=== PATIENT | female | born 1990 | race Caucasian/White ===

== ENCOUNTER 2016-09-03 20:13 | Inpatient (IN) | payer BC ==
[2016-09-03] MEDS ORDERED: OXYTOCIN 10 UNIT/ML 1 ML VIAL IM PRN (20:35)
[2016-09-03] MEDS ORDERED: TERBUTALINE 1 MG/ML VIAL SQ PRN (20:35)
[2016-09-03] MEDS ORDERED: LIDOCAINE 1% (PF) 10 MG/ML (30 ML SDV) SQ PRN (20:35)
[2016-09-03] MEDS ORDERED: CARBOPROST TROMETHAMINE 250 MCG/ML 1 ML AMP IM PRN (20:35)
[2016-09-03] MEDS ORDERED: METHYLERGONOVINE 0.2 MG/ML 1 ML AMP IM PRN (20:35)
[2016-09-03] MEDS ORDERED: BUTORPHANOL 1 MG/ML 1 ML VIAL IV PRN (20:36)
[2016-09-03] MEDS: LACTATED RINGERS 1,000 ML IV SCH (21:03)
[2016-09-03 21:14] LABS: Basophils % (A) 0 %; CH 29.6; CHCM 33.9; Eosinophils # (A) 0.1 k/uL (0-0.7); Eosinophils % (A) 1 %; HCT 40.2 % (34.0-46.0); HDW 2.78; HGB 13.5 gm/dL (11.4-16.0); Luc # (Auto) 0.37; Luc % (Auto) 3; Lymphocytes # (A) 1.7 k/uL (1.0-4.8); Lymphocytes % (A) 14 %; MCH 29.3 pg (25.0-35.0); MCHC 33.5 g/dL (31.0-37.0); MCV 87.6 fL (80.0-100.0); Mean Platelet Volume 8.5; Monocytes # (A) 0.6 k/uL (0-1.0); Monocytes % (A) 5 %; Neutrophils # (A) 9.7 k/uL (1.3-7.7); Neutrophils % (A) 78 %; RBC 4.59 m/uL (3.80-5.40); RDW 15.5 % (11.5-15.5); WBC 12.5 k/uL (3.8-10.6); WBC (Perox) 13.03
--- NOTE | 2016-09-03 21:43 | P.HPOB ---
History of Present Illness H&P Date: 09/03/16 Chief Complaint: 40-4/7 weeks, spontaneous rupture of membranes, early labor The patient is a 26-year-old 1 para 0 admitted at 40-4/7 weeks as established by an ultrasound early in the . She is admitted with documented spontaneous rupture of membranes of clear fluid. Her has been uncomplicated and group B strep status is negative. Obstetrical history: 1 para 0 with current statistics listed in history present illness. EDC of 08/30/2016 was established by early ultrasound. Laboratory workup demonstrates a blood type of A+ with a negative antibody screen. Rubella status is immune. The remainder of the laboratory workup was within normal limits. One hour Glucola was normal and group B strep status is negative. Gynecologic history: Unremarkable with no history of any infections to include STDs. Review of Systems Review of systems is confined to history of present illness. Past Medical History History of Any Multi-Drug Resistant Organisms: MRSA Date of last positivie culture/infection: 12/16/2013 MDRO Source:: Buttock Medications and Allergies Home Medications Medication Instructions Recorded Confirmed Type No Known Home Medications [No 09/03/16 09/03/16 History Known Home Medications] Allergies Allergy/AdvReac Type Severity Reaction Status Date / Time No Known Allergies Allergy Verified 09/03/16 20:34 Exam - Vital Signs Vital signs: Intake and Output 09/03/16 09/03/16 09/03/16 06:59 14:59 22:59 Other: Weight 86.183 kg Patient Weight 09/04/16 06:59 Weight 86.183 kg In general, this is a well-developed, well-nourished white female in no acute distress though she is in early labor. Her heart has a regular rhythm and rate without murmur. Her lungs are clear to auscultation bilaterally in all mary. Her abdomen is gravid, nondistended, has normal active bowel sounds, is soft, nontender, and without any palpable masses aside from uterine fundus. Her extremities are without any cyanosis, clubbing, or significant edema and are nontender to palpation bilaterally. Digital cervical examination performed by the nursing staff demonstrates her cervix to be 4 cm dilated, approximate 70% effaced, the vertex in presentation at -2 station. Spontaneous rupture of membranes is confirmed. Results Result Diagrams: 09/03/16 20:55 Abnormal Lab Results - Last 24 Hours (Table) 09/03/16 Range/Units 20:55 WBC 12.5 H (3.8-10.6) k/uL Neutrophils # 9.7 H (1.3-7.7) k/uL Assessment and Plan (1) Spontaneous rupture of amniotic membranes Status: Acute (2) Active labor at term Status: Acute Plan: The patient is admitted for active management of labor. She is lev on her own at this time in a regular pattern. Should she made no progress over the next several hours, Pitocin augmentation will be added. She will have close maternal and surveillance and expectant management will be practiced. She is a good candidate for either IV or epidural analgesia, whichever she may choose.
[2016-09-03 23:28] VITALS: BMI 33.6
[2016-09-04] MEDS: LACTATED RINGERS 1,000 ML IV SCH (00:28)
[2016-09-04] MEDS ORDERED: OXYTOCIN 20 UNITS/1000 ML NS 1,000 ML IV SCH (07:00)
[2016-09-04] MEDS ORDERED: BENZOCAINE/MENTHOL SPRAY 1 GM/SPRAY AEROSOL TOPICAL PRN (08:57)
[2016-09-04] MEDS ORDERED: WITCH HAZEL 1 EACH MED..PAD TOPICAL PRN (08:57)
[2016-09-04] MEDS ORDERED: diphenhydrAMINE 50 MG/ML 1 ML VIAL IVP PRN ×2 (08:57)
[2016-09-04] MEDS ORDERED: ACETAMINOPHEN TAB 325 MG TAB PO PRN (08:57)
[2016-09-04] MEDS ORDERED: diphenhydrAMINE ELIXIR 25 MG/10 ML CUP PO PRN (08:57)
[2016-09-04] MEDS ORDERED: Acetaminophen-Codeine 300-30mg TAB PO PRN (08:57)
[2016-09-04] MEDS ORDERED: SIMETHICONE 80 MG CHEWABLE PO PRN (08:57)
[2016-09-04] MEDS ORDERED: diphenhydrAMINE 50 MG CAP PO PRN (08:57)
[2016-09-04] MEDS ORDERED: ZOLPIDEM 5 MG TAB PO PRN (08:57)
[2016-09-04] MEDS ORDERED: IBUPROFEN 600 MG TAB PO PRN (08:57)
[2016-09-04] MEDS ORDERED: diphenhydrAMINE 25 MG CAP PO PRN (08:57)
[2016-09-04] MEDS ORDERED: HYDROCORTISONE 2.5% RECTAL CREAM 30 GM TUBE RECTAL PRN (08:57)
[2016-09-04] MEDS ORDERED: LANOLIN CREAM 5 GM TUBE TOPICAL PRN (08:57)
--- NOTE | 2016-09-04 08:57 | P.PROBDLV ---
Vaginal Delivery Note - . Vaginal Delivery Note: This is a 26-year-old white female 1 para 0 EDC 11/30/2016 at 40-5/7 weeks' gestation. Patient was initially scheduled for induction, but presented in active spontaneous labor. Spontaneous amniorrhexis revealed clear fluid. Group B strep cultures negative, blood type A+, rubella status immune. Please see dictated history and physical for details. Oxytocin augmentation was started. Epidural was attempted per the anesthesia staff, but was unsuccessful. Patient progressed well through the first stage of labor and was judged to be completely dilated at 0635 hours. She began the second stage of labor at that time. Successfully with slow steady progress. Heart tones were reassuring throughout first and second stages. Ultimately the perineal body was draped. 's head delivered occiput anterior and he restituted accordingly. There was no nuchal cord. The left or anterior shoulder was gently delivered from underneath the pubic symphysis at which time the oropharynx, nasopharynx and external nares were bulb suctioned on the perineal body. Patient was officially delivered of a liveborn male infant at 0837 hours. Umbilical cord was doubly clamped and ligated, he was handed to waiting nurses for evaluation where scores of 9 and 9 at one and 5 minutes respectively were given. Perineal body was redraped. Inspection of the cervix, vagina, perineum and periurethral areas revealed a small second-degree laceration in the midline. This was injected with lidocaine, and repaired in the usual fashion using 3-0 Vicryl suture for excellent reapproximation and strength. Hemostasis was very good. Infant weight 8 lbs. 1 oz. or 3655 g. All sponge needle and enhancement counts are correct at the end of the procedure. Patient and her are requesting circumcision further son.
[2016-09-04] MEDS ORDERED: SENNOSIDES-DOCUSATE SODIUM 1 EACH TAB PO SCH (20:00)
--- NOTE | 2016-09-05 07:41 | P.DS ---
Providers Date of admission: 09/03/16 20:33 Expected date of discharge: 09/05/16 Attending physician: Herrera Ramirez Primary care physician: Ciera Krishnan [place] [facility] Course: This is a 26-year-old white female 1 para 0 EDC 08/30/2016 at 40-5/7 weeks' gestation. Patient presented in active spontaneous labor. Her was essentially unremarkable, group B strep cultures negative, rubella status immune. Please see my dictated history and physical for details. Patient requested epidural but this was unable to be placed successfully. Oxytocin augmentation was given. She went on to ultimately deliver a liveborn male with scores of 9 and 9 at one and 5 minutes respectively. weighed 3655 g or 8 lbs. 1 oz. There was a small second-degree perineal laceration easily repaired. Estimated blood loss 350 mL's. Please see my dictated delivery note for details. This morning the patient is doing well. She is voiding, ambulating and passing flatus without difficulty. Vital signs are stable and she is afebrile. Fundus is firm and in the midline, symmetric and 18 week size. [place] is doing well, circumcision has been performed, please see separately dictated note. Patient is being discharged home later today. She is in very good condition for discharge home. I have reminded her no intercourse, tampons or douching. She will use [id number] ibuprofen products as needed for pain. I've asked her to call me with any fevers shakes or chills, foul smelling or copious lochia, with the passage of large blood clots, with any pain not alleviated by ibuprofen products, or indeed with any difficulties or concerns. [place] will follow-up with earth science technical officer as recommended. Patient Condition at Discharge: Good Plan - Discharge Summary Discharge Medication List No Known Home Medications [No Known Home Medications] 09/03/16 [History] Follow up Appointment(s)/Referral(s): Ciera Krishnan MD [Primary Care Provider] - 6 Weeks Discharge Disposition: HOME SELF-CARE
[2016-09-05 15:51] VITALS: RESP 20
[2016-09-05 15:52] VITALS: BP 107/66; PULSE 90; TEMP 98.2
== END 2016-09-05 14:15 | disposition home or self-care (01) | DRG 775 ==
LOC: FBPOP 20:13 → 4FBP 20:33
PROVIDERS: ADMIT Obstetrics & Gynecology; ATTEND Obstetrics & Gynecology
PROC: 10E0XZZ Delivery of Products of Conception, External Approach (ICD-10-PCS; principal; 2016-09-03)
PROC: 0KQM0ZZ Repair Perineum Muscle, Open Approach (ICD-10-PCS; 2016-09-03)
DX: O70.1 Second degree perineal laceration during delivery (principal); Z37.0 Single live birth; Z86.14 Personal history of Methicillin resistant Staphylococcus aureus infection; Z3A.40 40 weeks gestation of pregnancy
CPT/HCPCS: 59025; 84112; 85025; 88307; 99213